=== PATIENT | female | born 1970 | race Caucasian/White ===

== ENCOUNTER 2018-12-03 22:26 | Emergency (ER) | payer SELFPAY ==
[~2018-12-03] VITALS: Ht 175.3 cm; Wt 79.5 kg
[2018-12-03 22:35] VITALS: Ht 175.3 cm; Wt 79.5 kg
[2018-12-03] MEDS ORDERED: FAMOTIDINE10 MG PO (22:35)
[2018-12-04 00:01] LABS: BASOPHILS 0.3 % (0-2); EOSINOPHILS 0.9 % (0-7); HEMATOCRIT 40.1 % (36.0-48.0); HEMOGLOBIN 13.5 g/dL (12-16); IMMATURE GRANULOCYTES 0.3 % (0-5); LYMPHOCYTES 19.3 % (15-50); MCH 31.7 pg (26.0-34.0); MCHC 33.7 g/dL (31.0-37.0); MCV 94.1 fL (80.0-100.0); MEAN PLATELET VOLUME 9.9 fL (7.4-10.4); MONOCYTES 5.9 % (2-11); NEUTROPHILS 73.3 % (40-80); PLATELET COUNT 279 10x3/uL (130-400); RBC 4.26 10x6/uL (4.00-5.40); RDW 12.4 % (11.5-14.5); WBC 7.7 10x3/uL (4.8-10.8)
[2018-12-04 00:06] LABS: APTT 27.7 SECONDS (22.8-39.4); INR 1.03 (0.85-1.17)
[2018-12-04 00:09] LABS: ALBUMIN 3.9 g/dL (3.4-5.0); ALKALINE PHOSPHATASE 58 U/L (46-116); ALT (SGPT) 19 U/L (10-68); BILIRUBIN - TOTAL 0.29 mg/dL (0.2-1.3); CALC OSMOLALITY 275 mosm/kg (275-300); CALCIUM 9.2 mg/dL (8.5-10.1); CARBON DIOXIDE 28.5 mmol/L (21.0-32.0); CHLORIDE - SERUM 103 mmol/L (98-107); CREATININE - SERUM 0.8 mg/dL (0.6-1.3); GLUCOSE 118 mg/dL (74-106); POTASSIUM - SERUM 4.1 mmol/L (3.5-5.1); PROTEIN - SERUM 7.8 g/dL (6.4-8.2); SODIUM 138 mmol/L (136-145); UREA NITROGEN 10 mg/dL (7-18); eGFR NON AFRICAN AMERICAN 81 mL/min (90-120)
[2018-12-04 00:24] LABS: CKMB 0.6 U/L (0.0-3.6); CREATINE KINASE 85 UL (21-215)
[2018-12-04 00:28] LABS: TROPONIN-I < 0.017 ng/mL (0.000-0.060)
[2018-12-04 03:17] VITALS: BP 151/85
== END 2018-12-04 03:25 | disposition left against medical advice (07) ==
LOC: D.ER 22:26
PROVIDERS: Emergency Medicine
DX: R00.0 Tachycardia, unspecified (principal)